=== PATIENT | male | born 2000 | race African-American/Black ===

== ENCOUNTER 2024-07-04 19:39 | Emergency (ER) | payer OTHER ==
[~2024-07-04] VITALS: Ht 188 cm; Wt 104.3 kg
[2024-07-04] MEDS ORDERED: DOXYCYCLINE HYCLATE 100 MG TABLET ONE (20:15)
[2024-07-04] MEDS ORDERED: CEphaleXIN 500 MG CAPSULE ONE (20:15)
[2024-07-04] MEDS ORDERED: CEPH500C2 PO (20:16)
[2024-07-04] MEDS ORDERED: DOXY100T28 PO (20:16)
[2024-07-04] MEDS: CEphaleXIN 500 MG CAPSULE PO ONE (20:18)
[2024-07-04] MEDS: DOXYCYCLINE HYCLATE 100 MG TABLET PO ONE (20:18)
[2024-07-04 20:31] VITALS: BP 142/88; TEMP 97.8; O2SAT 96
== END 2024-07-04 20:32 | disposition home or self-care (01) ==
LOC: ER 19:40
DX: L03.114 Cellulitis of left upper limb (principal); L03.311 Cellulitis of abdominal wall; L98.491 Non-pressure chronic ulcer of skin of other sites limited to breakdown of skin; F17.200 Nicotine dependence, unspecified, uncomplicated; Z79.899 Other long term (current) drug therapy
CPT/HCPCS: A4606; A4663

== ENCOUNTER 2024-09-06 08:14 | Emergency (ER) | payer OTHER ==
[~2024-09-06] VITALS: Ht 188 cm; Wt 90.7 kg
[~2024-09-06 08:14] MED LIST: CEPH500C2 PO; DOXY100T28 PO
[2024-09-06] MEDS ORDERED: LORA0.5T48 PO ×2 (08:33→10:29)
[2024-09-06] MEDS ORDERED: ASCO500T85 PO (08:33)
[2024-09-06] MEDS ORDERED: THIA100T74 PO (08:33)
[2024-09-06] MEDS ORDERED: BUPR1FIL3 SL (08:33)
[2024-09-06] MEDS ORDERED: ASCO500P18 PO (08:33)
[2024-09-06 08:45] LABS: BASOPHILS % (AUTO) 0.2 % (0.0-2.0); HEMATOCRIT 42.2 % (36.7-47.1); HEMOGLOBIN 13.7 g/dL (12.5-16.3); LYMPHOCYTES # (AUTO) 1.4 K/uL (0.8-4.8); LYMPHOCYTES % (AUTO) 9.5 % (20.5-51.5); MEAN CORPUSCULAR HEMOGLOBIN 27.4 uug (23.8-33.4); MEAN CORPUSCULAR HGB CONC 32 g/dL (32.5-36.3); MEAN CORPUSCULAR VOLUME 84.4 fL (73.0-96.2); MONOCYTES # (AUTO) 0.7 K/uL (0.1-1.30); MONOCYTES % (AUTO) 4.9 % (0.0-11.0); NEUTROPHILS # (AUTO) 12.8 K/uL (1.8-8.9); NEUTROPHILS % (AUTO) 85.4 % (38.5-71.5); PLATELET COUNT (AUTO) 325 K/uL (152-348); RED CELL DISTRIBUTION WIDTH 15.5 % (12.1-16.2)
[2024-09-06] MEDS ORDERED: ONDANSETRON 4 MG/2 ML VIAL ONE (08:55)
[2024-09-06] MEDS ORDERED: KETOROLAC TROMETHAMINE 30 MG INJ ONE (08:56)
[2024-09-06] MEDS ORDERED: LORAZEPAM 2 MG/1 ML VIAL ONE ×2 (08:57→09:56)
[2024-09-06] MEDS: LORAZEPAM 2 MG/1 ML VIAL IV ONE ×2 (09:05→10:02)
[2024-09-06] MEDS: KETOROLAC TROMETHAMINE 30 MG INJ IVP ONE (09:05)
[2024-09-06] MEDS: IV NORMAL SALINE 1000 ML BAG IV ONE (09:05)
[2024-09-06] MEDS: ONDANSETRON 4 MG/2 ML VIAL IV ONE (09:05)
[2024-09-06 09:06] LABS: DIFFERENTIAL COMMENT 1
[2024-09-06 09:22] LABS: ALBUMIN 4.3 g/dL (3.4-5.0); BILIRUBIN,TOTAL 0.6 mg/dL (0.2-1.0); CALCIUM 9.9 mg/dL (8.5-10.1); POTASSIUM 3.3 mmol/L (3.5-5.1); TOTAL PROTEIN, SERUM 9.1 g/dL (6.4-8.2)
[2024-09-06] MEDS ORDERED: ONDA4TAB5 PO (10:29)
[2024-09-06 10:43] VITALS: BP 138/69; O2SAT 99
== END 2024-09-06 10:42 | disposition home or self-care (01) ==
LOC: ER 08:17
DX: F11.23 Opioid dependence with withdrawal (principal); F17.210 Nicotine dependence, cigarettes, uncomplicated; F41.9 Anxiety disorder, unspecified
CPT/HCPCS: 99284; 96374; 96375; 96361; 80053; 85025; 36415; 96376; J1885; J2060 ×2; J2405; J7040; A4606; A4663

== ENCOUNTER 2024-10-08 21:48 | Emergency (ER) | payer SELFPAY ==
[~2024-10-08] VITALS: Ht 188 cm; Wt 90.7 kg
[~2024-10-08 21:48] MED LIST changes: +ASCO500P18 PO; +ASCO500T85 PO; +BUPR1FIL3 SL; +LORA0.5T48 PO; +ONDA4TAB5 PO; +THIA100T74 PO
[2024-10-08] MEDS ORDERED: ONDANSETRON 4 MG/2 ML VIAL ONE (22:43)
[2024-10-08] MEDS: IV NORMAL SALINE 500 ML BAG IV ONE (22:43)
[2024-10-08] MEDS: ONDANSETRON 4 MG/2 ML VIAL IV ONE (22:47)
[2024-10-08 23:04] LABS: ALANINE AMINOTRANSFERASE 48 U/L (16-63); ALBUMIN 3.9 g/dL (3.4-5.0); ALKALINE PHOSPHATASE 74 U/L (50-136); ASPARTATE AMINOTRANSFERASE 90 U/L (15-37); BILIRUBIN,DIRECT 0.3 mg/dL (0.0-0.2); BILIRUBIN,TOTAL 0.9 mg/dL (0.2-1.0); CALCIUM 9.6 mg/dL (8.5-10.1); CARBON DIOXIDE 30 mmol/L (21-32); CHLORIDE 103 mmol/L (98-107); CREATININE 0.9 mg/dL (0.6-1.3); GLUCOSE 108 mg/dL (74-106); SODIUM SERUM 142 mmol/L (136-145); TOTAL PROTEIN, SERUM 8.2 g/dL (6.4-8.2); UREA NITROGEN, BLOOD 9 mg/dL (7-18)
[2024-10-08 23:12] LABS: ACETAMINOPHEN < 10.0 ug/mL (10-30); BASOPHILS # (AUTO) 0.2 K/UL (0.0-0.2); BASOPHILS % (AUTO) 1.4 % (0.0-2.0); EOSINOPHILS # (AUTO) 0.4 K/uL (0.0-0.7); EOSINOPHILS % (AUTO) 2.9 % (0.0-7.0); HEMATOCRIT 35.7 % (36.7-47.1); HEMOGLOBIN 11.8 g/dL (12.5-16.3); LYMPHOCYTES # (AUTO) 2.5 K/uL (0.8-4.8); LYMPHOCYTES % (AUTO) 19.2 % (20.5-51.5); MEAN CORPUSCULAR HEMOGLOBIN 27.3 uug (23.8-33.4); MEAN CORPUSCULAR HGB CONC 33 g/dL (32.5-36.3); MEAN CORPUSCULAR VOLUME 82.9 fL (73.0-96.2); MONOCYTES # (AUTO) 0.9 K/uL (0.1-1.30); MONOCYTES % (AUTO) 6.8 % (0.0-11.0); NEUTROPHILS # (AUTO) 9.2 K/uL (1.8-8.9); NEUTROPHILS % (AUTO) 69.7 % (38.5-71.5); PLATELET COUNT (AUTO) 267 K/uL (152-348); RED BLOOD CELL COUNT(AUTO) 4.31 MIL/uL (4.06-5.63); RED CELL DISTRIBUTION WIDTH 14.7 % (12.1-16.2); WHITE BLOOD COUNT (AUTO) 13.2 K/uL (3.6-10.2)
[2024-10-08 23:20] LABS: ETHANOL < 3 MG/DL (0-10)
[2024-10-09] MEDS: METOCLOPRAMIDE HCL 10 MG/2 ML VIAL IV ONE (01:15)
[2024-10-09] MEDS: FAMOTIDINE. 20 MG/2 ML VIAL IV ONE (01:15)
[2024-10-09] MEDS ORDERED: POTASSIUM CHLORIDE 20 MEQ POWDER PACKET ONE (02:43)
[2024-10-09] MEDS: POTASSIUM CHLORIDE 20 MEQ POWDER PACKET PO ONE (02:50)
[2024-10-09] MEDS: IV NORMAL SALINE 500 ML IV ONE (03:50)
[2024-10-09 11:38] VITALS: BP 138/76; TEMP 208; O2SAT 97
== END 2024-10-09 11:00 ==
LOC: ER 22:06
DX: R41.82 Altered mental status, unspecified (principal); R11.2 Nausea with vomiting, unspecified; E87.6 Hypokalemia; R51.9 Headache, unspecified; F17.210 Nicotine dependence, cigarettes, uncomplicated; Z79.899 Other long term (current) drug therapy; Z59.00 Homelessness unspecified
CPT/HCPCS: 80076; 80048; 85025; 36415 ×2; 93005; 71045; 99285; 96361 ×2; 96374; 80299; 80320; 83735; 70450; 96375; J2405; J7040 ×2; J3490; J2765; A4606; A4663; C1758; G0480

== ENCOUNTER 2024-12-24 02:02 | Emergency (ER) | payer OTHER ==
[~2024-12-24] VITALS: Ht 188 cm; Wt 90.7 kg
[2024-12-24] MEDS ORDERED: PERM60CR4 TP (04:19)
[2024-12-24] MEDS ORDERED: SULF1TAB48 PO (04:19)
[2024-12-24] MEDS: SULFAMETH/TRIMETH 800/160 MG TABLET PO ONE (04:30)
[2024-12-24] MEDS ORDERED: SULFAMETH/TRIMETH 800/160 MG TABLET ONE (05:35)
[2024-12-24 06:57] VITALS: BP 142/87; TEMP 98.4; O2SAT 98
== END 2024-12-24 06:00 | disposition home or self-care (01) ==
LOC: ER 02:07
DX: L98.499 Non-pressure chronic ulcer of skin of other sites with unspecified severity (principal); F22 Delusional disorders; F19.10 Other psychoactive substance abuse, uncomplicated; F17.210 Nicotine dependence, cigarettes, uncomplicated; Z59.00 Homelessness unspecified
CPT/HCPCS: A4606; A4663